=== PATIENT | male | born 1990 | race Caucasian/White ===

== ENCOUNTER → 2016-08-04 | Outpatient (CLI) | payer OTHER | LOC: COL.PUL 07:44 | DX: R06.02 Shortness of breath (principal) | CPT/HCPCS: J7674 ==

== ENCOUNTER → 2016-12-15 | Outpatient (CLI) | payer OTHER | LOC: COL.VAS 12:00 | DX: R06.02 Shortness of breath (principal) ==

== ENCOUNTER → 2017-02-16 | Outpatient (CLI) | payer OTHER | LOC: COL.PUL 10:50 | DX: R06.02 Shortness of breath (principal) ==